=== PATIENT | female | born 1970 | race Caucasian/White ===

== ENCOUNTER 2017-03-10 02:38 | Emergency (ER) | payer OTHER ==
[~2017-03-10] VITALS: Ht 162.6 cm; Wt 52.4 kg
[2017-03-10 02:45] VITALS: TEMP 36.3; Ht 162.6 cm; Wt 52.4 kg
[2017-03-10] MEDS ORDERED: BCPILLS PO (03:03)
[2017-03-10] MEDS ORDERED: PSEUDOEPHEDRINE HCL 30 MG TAB PO STA (03:08)
[2017-03-10] MEDS ORDERED: KETOROLAC TROMETHAMINE 60 MG/2 ML VIAL IM STA (03:08)
[2017-03-10] MEDS ORDERED: AMOXICIL/CLAVU 875MG HOME PACK PO ONE (03:15)
[2017-03-10] MEDS ORDERED: DEXAMETHASONE **PF** INJ 10 MG/ML VIAL PO ONE (03:15)
[2017-03-10] MEDS ORDERED: AMOX875T PO (03:16)
[2017-03-10] MEDS ORDERED: PRED50TA PO (03:16)
--- NOTE | 2017-03-10 03:20 | EMERGENCY ROOM VISIT NOTE ---
History First contact with patient: 02:49 Chief Complaint: ILLNESS Stated Complaint: VERY SICK,EAR ACHE ETC... History of Present Illness The patient is a 47 year old female who presents to the Emergency Room with complaints of sinus pain and congestion with frontal headache with ear discomfort and rhinorrhea past few days. She complains of subjective fever and chills. Patient denies chest pain, dyspnea, abdominal pain, neck stiffness. She is tolerating by mouth fluids and food. No recent antibiotics. Review of Systems See HPI for pertinent positives & negatives. A total of 10 systems reviewed and were otherwise negative. Past Medical/Surgical History Medical Problems: (1) [place] Teeth Removal Social History Smoking Status: Never Smoker Smokeless Tobacco Use: No Alcohol Use: occasionally Drug Use: none Marital Status: Housing Status: lives with family Current/Historical Medications Scheduled Amoxicillin & Pot Clavulanate (Augmentin 875-125 mg), 1 TAB PO BID Control Pills ( Control Pills), 1 TAB PO DAILY Prednisone (Prednisone), 50 MG PO DAILY Physical Exam Vital Signs Date Time Temp Pulse Resp B/P (MAP) Pulse Ox O2 Delivery O2 Flow Rate FiO2 03/10/17 02:45 36.3 105 18 138/95 96 Room Air Physical Exam VITALS: Vitals are noted on the nurse's note and reviewed by myself. Vital signs stable. GENERAL: Pleasant female, in no acute distress, nondiaphoretic, well-developed well-nourished. SKIN: The skin was without rashes, erythema, edema, or bruising. There is no tenting of the skin. Capillary reflex less than 2 seconds. HEAD: Normocephalic atraumatic. EARS: External auditory canals clear, tympanic membranes pearly coughlin without erythema or effusion bilaterally. EYES: Pupils equal round and reactive to light and accommodation. Conjunctivae without injection, sclerae without icterus. Extraocular movements intact. NOSE: Patent, turbinates without inflammation or discharge. Bilateral maxillary sinus tenderness. MOUTH: Mucous membranes moist. Pharynx without erythema or exudate. Uvula midline. Airway patent. Tongue does not deviate. NECK: Supple without nuchal rigidity. No lymphadenopathy. No thyromegaly. Cervical spine is nontender. No JVD. HEART: Regular rate and rhythm without murmurs gallops or rubs. LUNGS: Clear to auscultation bilaterally without wheezes, rales or rhonchi. No dullness to percussion. No retractions or accessory muscle use. ABDOMEN: Positive bowel sounds x 4. Normal tympanic percussion. Soft, nontender, without masses or organomegaly. Toussaint sign negative. No guarding or rebound tenderness. MUSCULOSKELETAL: No muscle atrophy, erythema, or edema noted. NEURO: Patient was alert and oriented to person place and time. Normal sensation to light and sharp touch. No focal neurological deficits. Medical Decision & Procedures ED Course Prior records reviewed and summarized as above. Triage Nursing notes reviewed. Additional history obtained from family The patient's history was concerning for sinus pain and congestion with cold symptoms Differential diagnosis: Etiologies such as sinusitis, pneumonia, pharyngitis, otitis, sepsis, bacteremia , meningitis, mastoiditis as well as others were entertained.. Physical examination: The physical examination was consistent with sinusitis ER treatment provided: Augmentin, Sudafed, Decadron On reassessment the patient felt better. Diagnostics interpreted by me: Deferred This appears to be sinusitis. Patient was offered CT imaging and laboratory testing but declined. She felt comfortable with antibiotics and close follow- up family care. I felt this is reasonable. She no signs of meningitis. She is afebrile and nontoxic. She is advised to take medications as directed, rest , stay well-hydrated and follow-up family care in a few days or here in the ER sooner for chest pain, difficulty breathing, high fevers, neck stiffness, lethargy, confusion, worsening signs or symptoms or as needed. By the evaluation outlined above emergent etiologies such as meningitis, mastoiditis, bacteremia, sepsis, as well as others were deemed relatively unlikely. The pt informed about the findings as listed above. All questions were answered and pleased with the treatment. Return instructions were outlined and the patient was discharged in stable condition. Outpatient prescription management: augmentin, prednisone Referral: The patient was referred back to primary care physician for follow-up in 2 to 3 days for a recheck of the current condition. Medical Decision As above Medication Reconcilliation Current Medication List: was personally reviewed by me Blood Pressure Screening Patient's blood pressure: Normal blood pressure Impression Primary Impression: Acute sinusitis Departure Information Dispostion Home / Self-Care Condition GOOD Prescriptions Amoxicillin & Pot Clavulanate (Augmentin 875-125 mg) 1 Tab Tab 1 TAB PO BID for 9 Days, #18 TAB Prov: Adriana Anglin .JEAN-CLAUDE 03/10/17 Prednisone (Prednisone) 50 Mg Tab 50 MG PO DAILY for 4 Days, #4 TAB Prov: Adriana Anglin PA-C 03/10/17 Forms WORK / SCHOOL INSTRUCTIONS, HOME CARE DOCUMENTATION FORM, IMPORTANT VISIT INFORMATION Patient Instructions Sinusitis Acute, My [facility] Additional Instructions Amoxicillin Clavulanate (Augmentin) 875mg: Take one pill twice daily for 10 days for your infection. All antibiotics can cause diarrhea. If this occurs and you feel worse or it does not resolve in 1-2 days follow up with your doctor or return to the Emergency Department as this could be signs of serious underlying problems. Any medication can cause an allergic reaction, stop the pills immediately and return to the ER for rash, hives, breathing difficulties, or swelling. Prednisone 50mg: Once daily until the prescription is finished. It is best to take this earlier in the day as some patients note occasional difficulty falling asleep when taken in the late evening. Acetaminophen(Tylenol) may be used for fever or pain. Use 1000mg every six hours as needed. Avoid using more than 3000mg in a 24 hour period. (AND/OR) Ibuprofen(Motrin, Advil) may be used for fever or pain. Use 600mg every six hours as needed. Take with food. Avoid using more than 2400mg in a 24 hour period. Do not use 2400mg per day for more than three consecutive days without physician direction. Prolonged inappropriate use can lead to stomach upset or ulcers. Afrin nasal spray: 2-3 sprays to each nostril twice daily as needed for congestion. Do not use for more than 3-4 days because it can lead to worsening rebound congestion. Pseudoephedrine(Sudaphed): 30-60mg every 6 hours as needed for nasal congestion. Do not take this with other stimulant products or supplements. Rest and drink plenty of fluids. Controlling your fever with Tylenol and Ibuprofen as above will make you feel better. Wash your hands after nose blowing, sneezing, or coughing. Most germs are spread through contact, therefore improper hygiene may result in your close contacts and loved ones becoming ill just like you. Continue current medications. Return to the ER for severe headache, neck stiffness, chest pain, difficulty breathing, fevers, vomiting, worsening of your condition, or as needed. Follow up with your primary physician this week for a recheck of your current condition. Problem Qualifiers Primary Impression: Acute sinusitis Sinusitis location: maxillary Recurrence: not specified as recurrent Qualified Codes: J01.00 - Acute maxillary sinusitis, unspecified
[2017-03-10 03:54] VITALS: BP 150/101; PULSE 107; O2SAT 97
== END 2017-03-10 03:58 | disposition home or self-care (01) ==
LOC: C.EDB 02:41
DX: J01.90 Acute sinusitis, unspecified (principal); Z79.3 Long term (current) use of hormonal contraceptives